=== PATIENT | female | born 1975 | race African-American/Black ===

== ENCOUNTER 2020-06-02 14:15 | Emergency (ER) | payer OTHER ==
[2020-06-02 14:38] VITALS: BP 113/77; PULSE 67; TEMP 98; BMI 29.8
[2020-06-02] MEDS ORDERED: LIDOCAINE 5% TOPICAL PATCH TP ONE (15:03)
[2020-06-02] MEDS ORDERED: LIDOCAINE 5% TOPICAL PATCH ONE (15:04)
== END 2020-06-02 16:04 | disposition home or self-care (01) ==
LOC: JER 14:15 → JERFT 14:15
DX: B02.9 Zoster without complications (principal)
CPT/HCPCS: 99284-25

== ENCOUNTER 2021-06-15 10:35 | Day surgery (SDC) | payer OTHER ==
[2021-06-15] MEDS ORDERED: FERRIC CARBOXYMALTOSE 750 MG in SODIUM CHLORIDE 250 ML IVPB SCH (11:00)
[2021-06-15 11:16] VITALS: PULSE 77; TEMP 98.8
[2021-06-15 11:47] VITALS: BP 128/66
== END 2021-06-15 12:00 | disposition home or self-care (01) ==
LOC: FINFUSION 10:35 → FM/S 10:37 → FINFUSION 12:00
PROVIDERS: ATTEND Family Medicine
PROC: 3E033GC Introduction of Other Therapeutic Substance into Peripheral Vein, Percutaneous Approach (ICD-10-PCS; principal; 2021-06-15)
DX: D50.9 Iron deficiency anemia, unspecified (principal)
CPT/HCPCS: 96365; J1439

== ENCOUNTER 2021-06-22 11:55 | Day surgery (SDC) | payer OTHER ==
[2021-06-22] MEDS ORDERED: FERRIC CARBOXYMALTOSE 750 MG in SODIUM CHLORIDE 250 ML IVPB SCH (12:15)
[2021-06-22 13:08] VITALS: TEMP 98.7
[2021-06-22 14:04] VITALS: BP 125/78; PULSE 62
== END 2021-06-22 14:30 | disposition home or self-care (01) ==
LOC: FINFUSION 11:55 → FM/S 11:55 → FINFUSION 14:30
PROVIDERS: ATTEND Family Medicine
PROC: 3E033GC Introduction of Other Therapeutic Substance into Peripheral Vein, Percutaneous Approach (ICD-10-PCS; principal; 2021-06-22)
DX: D50.9 Iron deficiency anemia, unspecified (principal)
CPT/HCPCS: 81025; 96365; J1439

== ENCOUNTER 2023-06-16 04:40 | Day surgery (SDC) | payer OTHER ==
[2023-06-15 11:16] VITALS: BMI 30.9
[2023-06-16 08:48] VITALS: RESP 18
[2023-06-16 09:51] VITALS: TEMP 97.3
[2023-06-16 10:12] VITALS: BP 118/68; PULSE 73
== END 2023-06-16 10:45 | disposition home or self-care (01) ==
LOC: JASU-ENDO 04:40
PROVIDERS: ATTEND Internal Medicine Gastroenterology
PROC: 0DBN8ZX Excision of Sigmoid Colon, Via Natural or Artificial Opening Endoscopic, Diagnostic (ICD-10-PCS; 2023-06-16)
PROC: 0DBP8ZX Excision of Rectum, Via Natural or Artificial Opening Endoscopic, Diagnostic (ICD-10-PCS; principal; 2023-06-16 09:30)
DX: Z12.11 Encounter for screening for malignant neoplasm of colon (principal); D12.8 Benign neoplasm of rectum; K63.5 Polyp of colon; K64.8 Other hemorrhoids
CPT/HCPCS: 88305-TC